=== PATIENT | male | born 1985 | race American Indian/Alaskan Native ===

== ENCOUNTER 2017-05-14 16:39 | Emergency (ER) | payer OTHER ==
[2017-05-14 17:08] VITALS: BP 121/80
[2017-05-14 17:22] LABS: Basophils % (Auto) 1.1 % (0.0-1.8); Eosinophils % (Auto) 2.6 % (0.0-4.3); Hematocrit 43.6 % (35.5-45.6); Hemoglobin 14.8 gm/dl (11.8-15.2); Mean Corpuscular HGB Conc 34 % (32-34); Mean Corpuscular Hemoglobin 31 pg (28-32); Mean Corpuscular Volume 90 fl (84-94); Platelet Count 339 K/mm3 (140-440); Red Blood Count 4.83 M/mm3 (3.65-5.03); Red Cell Distribution Width 13.3 % (13.2-15.2); White Blood Count 8.8 K/mm3 (4.5-11.0)
[2017-05-14 17:38] LABS: Anion Gap 22 mmol/L; BUN/Creatinine Ratio 7; Blood Urea Nitrogen 6 mg/dL (9-20); Calcium 9.2 mg/dL (8.4-10.2); Carbon Dioxide 26 mmol/L (22-30); Chloride 102.4 mmol/L (98-107); Glucose 112 mg/dL (75-100); Potassium 4.2 mmol/L (3.6-5.0); Sodium 146 mmol/L (137-145)
== END 2017-05-14 17:40 | disposition left against medical advice (07) ==
LOC: ED 16:39
DX: Z00.8 Encounter for other general examination (principal); Z53.21 Procedure and treatment not carried out due to patient leaving prior to being seen by health care provider
CPT/HCPCS: 36415; 80048; 85025; G0480; 80320

== ENCOUNTER 2018-12-23 18:43 | Emergency (ER) | payer SELFPAY ==
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
[2018-12-24 03:47] VITALS: BP 118/82
== END 2018-12-24 03:47 | disposition home or self-care (01) ==
LOC: ED 18:43
DX: R51 Headache (principal)
CPT/HCPCS: 70450